=== PATIENT | male | born 1995 | race Two or more races ===

== ENCOUNTER 2020-09-29 02:04 | Emergency (ER) | payer OTHER ==
[~2020-09-29] VITALS: Ht 167.6 cm; Wt 68.0 kg
[2020-09-29 02:05] VITALS: BP 126/69
[2020-09-29] MEDS ORDERED: Haloperidol 5mg/ml Inj ONE (02:09)
[2020-09-29] MEDS ORDERED: Haloperidol 5mg/ml Inj IM ONE (02:15)
--- NOTE | 2020-09-29 02:20 | NUR ---
ED Nurse Note: Patient brought into ED by [facility] 29 accompanied by [facility] c/o medical clearance, patient brought into ED due to 2 tazer barbs stuck in his upper right back, patient complains of 5/10 pain. patient is rambling words, no suicidal or homocidal ideation. will wait for further orders
--- NOTE | 2020-09-29 02:21 | Emergency Room Report ---
History of Present Illness General Chief Complaint: Medical Clearance Source: Patient, Medical Record, EMS Present Illness HPI Is a 25-year-old male with probable methamphetamine abuse. He was brought in by police with chief complaint of medical clearance. He was agitated and family called 911. He was discharged with assault with a deadly weapon. He was tased. EMS said he was agitated 70%. He is, here but still rambling and agitated. Unable to give any history. He denies any other trauma. No reported suicidal thoughts homicidal thought. Allergies: Coded Allergies: No Known Allergies (Unverified , 09/29/20) COVID-19 Screening Contact w/high risk pt: No Experienced COVID-19 symptoms?: No COVID-19 Testing performed PERSONAL COACH: No Patient History Past Medical History: see triage record, old chart reviewed Past Surgical History: other Pertinent Family History: unable to obtain Social History: Reports: drug use Immunizations: other Reviewed Nursing Documentation: PMH: Agreed; PSxH: Agreed Nursing Documentation-PMH Past Medical History: No Stated History Review of Systems All Other Systems: limited - Limited secondary to agitation and psychosis Physical Exam Vital Signs Date Time Temp Pulse Resp B/P (MAP) Pulse Ox O2 Delivery O2 Flow Rate FiO2 09/29/20 01:58 97.7 115 18 126/69 (88) 98 Room Air Vitals with tachycardia Sp02 EP Interpretation: reviewed, normal General Appearance: well appearing, no apparent distress, alert Head: normocephalic, atraumatic Eyes: bilateral eye PERRL, bilateral eye EOMI ENT: hearing grossly normal, normal pharynx Neck: full range of motion, supple, no meningismus Respiratory: chest non-tender, lungs clear, normal breath sounds Cardiovascular #1: regular rate, rhythm, no murmur Gastrointestinal: normal bowel sounds, non tender, no mass, no organomegaly, no bruit, non-distended Musculoskeletal: normal range of motion, gait/station normal, other - Right upper back with 2 taser darts embedded on skin. Psychiatric: mood/affect normal Procedures Additional Procedure Procedure Narrative Procedure: Foreign body removal Indication: Subcutaneous foreign body Description: With traction I pulled out the 2 taser darts from his back. Patient tolerated procedure without any problem. Medical Decision Making Diagnostic Impression: Primary Impression: OTH FOREIGN BODY OR OBJECT ENTERING THROUGH SKIN, INIT Additional Impressions: Drug-induced psychotic disorder Qualified Codes: F19.959 - Other psychoactive substance use, unspecified with psychoactive substance-induced psychotic disorder, unspecified Methamphetamine abuse ER Course Patient presents with probable drug-induced psychosis. He also was tased. Foreign body removed without any difficulty. I gave him Haldol to calm him down. Will observe until clinical sobriety will be discharged to plain clothes police officer. Patient slept through the night. He is now awake and calm. He is medically clear for discharge to plain clothes police officer. No criteria for 5150. This patient is a chronic risk of self injury due to poor impulse control, limited coping skills, and judgment intermittently impaired by intoxication. I believe that the available clinical evidence to suggest that these characteristics derived primarily from personality disorder and are likely very stable over time. Hospitalization would likely attenuate risk of self-harm only during jail period, without lasting risk reduction. Serious self-harm, while possible, would likely be inadvertent, and because of impulsivity, and foreseeable. For these reasons, I do not believe hospitalization would provide meaningful reduction in risk of self-harm. Last Vital Signs Date Time Temp Pulse Resp B/P (MAP) Pulse Ox O2 Delivery O2 Flow Rate FiO2 09/29/20 01:58 97.7 115 18 126/69 (88) 98 Room Air Status: improved Disposition: HOME, SELF-CARE Condition: Stable Additional Instructions: Follow-up with your doctor in 7 days. Return if symptoms worsen. Khris Kramer MD Sep 29, 2020 02:21
--- NOTE | 2020-09-29 02:25 | NUR ---
ED Nurse Note: Dr. Kramer removed 2 barbs, skin does have puncture wounds, band air applied
[2020-09-29 05:15] VITALS: BP 115/65
--- NOTE | 2020-09-29 05:15 | NUR ---
ER DISCHARGE NOTE: Patient is cleared to be discharged per ERMD, pt is aox4, on room air, with stable vital signs. pt was given dc instructions, pt was able to verbalize understanding, pt id band removed without complications. pt is able to ambulate with steady gait. pt took all belongings. Patient accompanied out of the unit by PD
== END 2020-09-29 05:15 | disposition home or self-care (01) ==
LOC: EDBD 02:04 → EMR 02:10
DX: M79.5 Residual foreign body in soft tissue (principal); F19.959 Other psychoactive substance use, unspecified with psychoactive substance-induced psychotic disorder, unspecified; F15.10 Other stimulant abuse, uncomplicated
CPT/HCPCS: 80307; 96372; 99283; J1630